=== PATIENT | female | born 1945 | race Caucasian/White ===

== ENCOUNTER → 2021-08-11 | Outpatient (CLI) | payer MEDICARE | LOC: KOH-I 14:28 | DX: M79.671 Pain in right foot (principal); M19.071 Primary osteoarthritis, right ankle and foot | CPT/HCPCS: 73630 ==

== ENCOUNTER → 2021-08-19 | Outpatient (CLI) | payer MEDICARE | LOC: KOH-I 11:12 | DX: Z01.818 Encounter for other preprocedural examination (principal); I73.9 Peripheral vascular disease, unspecified | CPT/HCPCS: 93926 ==